=== PATIENT | male | born 1990 | race Caucasian/White ===

== ENCOUNTER 2018-08-09 16:53 | Emergency (ER) | payer SELFPAY ==
[~2018-08-09] VITALS: Ht 180.3 cm; Wt 76.0 kg
[2018-08-09 16:57] VITALS: BP 134/91
--- NOTE | 2018-08-09 17:18 | NUR ---
MD IS AT THE BEDSIDE FOR ASSESSMENT
[2018-08-09] MEDS ORDERED: LORazepam 1MG TABLET ONE (17:21)
[2018-08-09] MEDS ORDERED: LORazepam 1MG TABLET PO ONE (17:30)
--- NOTE | 2018-08-09 18:13 | NUR ---
PT IS SLEEPING SONOROUSLY ON AN E.R. GURNEY WHILE AWAITING AN MD TO RECHECK. VS ARE STABLE, AND THERE ARE NO ACUTE CHANGES NOTED AT THIS TIME. I WILL CONTINUE TO MONITOR AND TREAT ORDERED, WELL PRN WHILE AWAITING A ROOM ASSIGNMENT FOR ADMISSION.
--- NOTE | 2018-08-09 18:58 | NUR ---
LYNETTE (RN) IS ASSUMING CARE OF THIS PT AT THIS TIME. SBAR REPORT WAS EXCHANGED AT THE BEDSIDE.
== END 2018-08-09 19:37 | disposition home or self-care (01) ==
LOC: EDBD 16:53 → ED 19:20
DX: S29.011A Strain of muscle and tendon of front wall of thorax, initial encounter (principal); F15.10 Other stimulant abuse, uncomplicated; V89.2XXA Person injured in unspecified motor-vehicle accident, traffic, initial encounter; Y93.89 Activity, other specified; Y92.89 Other specified places as the place of occurrence of the external cause; Y99.8 Other external cause status
CPT/HCPCS: 71045; 99283